=== PATIENT | female | born 1980 | race Two or more races ===

== ENCOUNTER 2024-07-02 19:31 | Emergency (ER) | payer OTHER ==
[~2024-07-02] VITALS: Ht 182.9 cm; Wt 96.2 kg
[2024-07-02] MEDS: MORPHINE SULFATE INJ 2 MG/ML DISP.SYRIN IM ONE (21:13)
[2024-07-02] MEDS ORDERED: METH-649 PO (22:50)
[2024-07-02] MEDS ORDERED: IBUP-1957 PO (22:50)
[2024-07-02] MEDS ORDERED: ACET-2030 PO (22:50)
[2024-07-02] MEDS ORDERED: CYCLOBENZAPRINE 10 MG TABLET ONE (22:55)
[2024-07-02] MEDS: CYCLOBENZAPRINE 10 MG TABLET PO ONE (22:58)
[2024-07-02] MEDS ORDERED: METHOCARBAMOL (750MG) 750 MG TABLET PO SCH (23:00)
[2024-07-02 23:15] VITALS: BP 135/80; TEMP 98.5; O2SAT 99
== END 2024-07-02 23:16 | disposition home or self-care (01) ==
LOC: ER 19:37
DX: S52.202A Unspecified fracture of shaft of left ulna, initial encounter for closed fracture (principal); Z79.1 Long term (current) use of non-steroidal anti-inflammatories (NSAID); Z60.2 Problems related to living alone; W01.0XXA Fall on same level from slipping, tripping and stumbling without subsequent striking against object, initial encounter; Y93.89 Activity, other specified; Y92.89 Other specified places as the place of occurrence of the external cause; Y99.0 Civilian activity done for income or pay
CPT/HCPCS: 99284; 96372; 73080; 73090; J2270